=== PATIENT | female | born 1995 | race Caucasian/White ===

== ENCOUNTER 2018-03-17 11:11 | Emergency (ER) | payer SELFPAY ==
[2018-03-17] MEDS ORDERED: Ondansetron 4 MG/2 ML SDV IV ONE (12:17)
[2018-03-17] MEDS ORDERED: Sodium Chloride 0.9% 1,000 ML IV ONE (12:17)
[2018-03-17] MEDS ORDERED: Sodium Chloride 0.9% 10 ML Syringe FLUSH PRN (12:18)
[2018-03-17] MEDS ORDERED: Dicyclomine 20 MG/2 ML SDV IM ONE (12:18)
[2018-03-17 12:58] LABS: ANION GAP 17.9; CHLORIDE,CL 102 mmol/L (101-111); SODIUM,NA 139 mmol/L (135-145)
[2018-03-17] MEDS ORDERED: Iopamidol 612 MG/ML 100 ML Bottle IVPUSH ONE (13:40)
--- NOTE | 2018-03-17 14:46 | CT ---
Clinical history: 22-year-old 245 pound female with lower abdominal pain; elevated white blood cell count (WBC > 16,000). Scan technique: Volume acquisition of data from the abdomen and pelvis obtained without oral contrast but during intravenous ministration 100 cc nonionic Isovue contrast (3 cc/s via injector) while patient was lying supine on the Siemens multi slice scanner [place], [place]. Data archived in the PACS system for storage, reformatting axial/sagittal/coronal planes and study. Interpretation: 1. Normal long appendix in the right lower quadrant, behind the cecum. No calcified appendicoliths or inflammatory "dirty" fat. 2. *Dominant 18 mm diameter cyst left ovary. No "inflammatory "adnexal fat or signs of free fluid in the pelvis. Normal uterus. 3. No abdominal or pelvic mass lesion; no pelvic, mesenteric or retroperitoneal lymphadenopathy; no sign mechanical bowel obstruction, ascites or free intraperitoneal air. No diverticula of the colon. 4. Gallbladder, liver, stomach, spleen, pancreas and adrenal glands unremarkable. 5. Normal reniform size, axis and configuration bilaterally. No sign of renal cortical mass (cystic or solid), nephrolithiasis or obstructive uropathy. No perinephric inflammatory changes. Symmetrically distended normal appearing urinary bladder. 6. Normal caliber abdominal aorta. Lumbar spine unremarkable. Normal heart. Lung bases clear. CONCLUSION: Solitary small left ovarian cyst. Normal appendix. No sign of acute intraperitoneal abnormality.:
--- NOTE | 2018-03-17 15:04 | EDM.PDOC ---
"Scribed by Danita Arrieta 03/17/18 1245 for Rajeev Man MD ED HPI GENERAL MEDICAL PROBLEM - General Chief Complaint: Abdominal Pain Stated Complaint: NOT FEELING WELL Time Seen by Provider: 03/17/18 11:49 Source of Information: Reports: Patient, RN, RN Notes Reviewed History Limitations: Reports: No Limitations - History of Present Illness INITIAL COMMENTS - FREE TEXT/NARRATIVE: Patient presents to ER from home by POV stating that she got really drunk on New Years and had a hangover with nausea and vomiting the following day, but did not have abdominal pain. On 03/13/18 she developed epigastric and left sided abdominal pain with diarrhea and nausea. She has intermittent abdominal cramping which is usually relieved by bowel movements. These symptoms have persisted this past week. She now has been having occasional amounts of hard stool followed by diarrhea. She denies any fevers or chills. Denies bloody stool. She has noted some black stool. Onset: Gradual Duration: Constant Location: Reports: Abdomen Quality: Reports: Ache Severity: Severe Improves with: Reports: Other (when laying on her left side with her knees pulled up. ) Worsens with: Reports: Eating Associated Symptoms: Reports: No Other Symptoms Abdomen Pain Score (Numeric/FACES): 4 - Related Data Allergies Allergy/AdvReac Type Severity Reaction Status Date / Time atomoxetine [From Strattera] Allergy Dizziness Verified 03/17/18 11:31 ceftriaxone [From Rocephin] Allergy Anaphylactic Verified 03/17/18 11:31 Shock strawberry Allergy Anaphylactic Verified 03/17/18 11:31 Shock yagmister Allergy Anaphylactic Uncoded 03/17/18 11:31 Shock Home Meds: Home Meds . 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 Musculoskeletal History: Reports: None Neurological History: Reports: None Psychiatric History: Reports: None Endocrine/Metabolic History: Reports: None Hematologic History: Reports: None Immunologic History: Reports: None Oncologic (Cancer) History: Reports: None Dermatologic History: Reports: None - Infectious Disease History Infectious Disease History: Reports: Other (See Below) Other Infectious Disease History: limes disease - Past Surgical History Head Surgeries/Procedures: Reports: None Social & Family History - Tobacco Use Smoking Status *Q: Never Smoker Second Hand Smoke Exposure: No - Caffeine Use Caffeine Use: Reports: Coffee - Recreational Drug Use Recreational Drug Type: Reports: Marijuana/Hashish Other Recreational Drug Type: pot smoked last night - Living Situation & Occupation Living situation: Reports: with Family ED ROS GENERAL - Review of Systems Review Of Systems: ROS reveals no pertinent complaints other than HPI. ED EXAM, GI/ABD - Physical Exam Exam: See Below Exam Limited By: No Limitations General Appearance: Alert, WD/WN, No Apparent Distress, Obese Eyes: Bilateral: Normal Appearance Nose: Normal Inspection, Normal Mucosa, No Blood Throat/Mouth: Normal Lips, Normal Teeth, Normal Gums, Normal Oropharynx, No Airway Compromise, Other (Dry oral membranes) Head: Atraumatic, Normocephalic Neck: Normal Inspection, Supple, Non-Tender, Full Range of Motion Respiratory/Chest: No Respiratory Distress, Lungs Clear, Normal Breath Sounds, No Accessory Muscle Use, Chest Non-Tender Cardiovascular: Regular Rate, Rhythm, No Edema, No Murmur GI/Abdominal Exam: Normal Bowel Sounds, Soft, No Distention, Tender ( generalized abdominal tenderness, worse at LLQ). No: Guarding, Rigid, Rebound (Female) Exam: Deferred Rectal (Female) Exam: Deferred Back Exam: Normal Inspection, Full Range of Motion. No: CVA Tenderness (L), CVA Tenderness (R) Extremities: Normal Inspection, Normal Range of Motion, Non-Tender, Normal Capillary Refill, No Pedal Edema Neurological: Alert, Oriented, CN II-XII Intact, Normal Cognition, Normal Gait, No Motor/Sensory Deficits Psychiatric: Normal Affect, Normal Mood Skin Exam: Warm, Dry, Intact, Normal Color, No Rash Course - Vital Signs Last Recorded V/S: Last Vital Signs Temp 35.8 C 03/17/18 11:22 Pulse 92 03/17/18 11:22 Resp 16 03/17/18 11:22 BP 139/84 03/17/18 11:39 Pulse Ox 99 03/17/18 11:22 - Orders/Labs/Meds Orders: Active Orders 24 hr Category Date Time Status Peripheral IV Care [RC] . DIRECTED Care 03/17/18 12:18 Active Sodium Chloride 0.9% [Saline Flush] Med 03/17/18 12:18 Active 10 ml FLUSH ASDIRECTED PRN Peripheral IV Insertion Adult [OM.PC] Stat Oth 03/17/18 12:16 Ordered Medication Orders Sodium Chloride (Saline Flush) 10 ml FLUSH ASDIRECTED PRN PRN Reason: Keep Vein Open Last Admin: 03/17/18 12:53 Dose: 10 ml Labs: Laboratory Tests 03/17/18 03/17/18 03/17/18 Range/Units 12:25 12:25 12:25 WBC 16.1 H (5.0-10.0) 10^3/uL RBC 5.07 (4.2-5.4) 10^6/uL Hgb 15.8 (12.0-16.0) g/dL Hct 45.6 (37.0-47.0) % MCV 89.9 (80-100) fL MCH 31.2 (27.0-34.0) pg MCHC 34.6 (33.0-35.0) g/dL Plt Count 368 (150-450) 10^3/uL Neut % (Auto) 80.6 H (42.2-75.2) % Lymph % (Auto) 13.4 L (20.5-50.1) % [place] % (Auto) 5.5 (2-8) % Eos % (Auto) 0.3 L (1.0-3.0) % Baso % (Auto) 0.2 (0.0-1.0) % Sodium 139 (135-145) mmol/L Potassium 3.9 (3.6-5.0) mmol/L Chloride 102 (101-111) mmol/L Carbon Dioxide 23.0 (21.0-31.0) mmol/L Anion Gap 17.9 BUN 13 (7-18) mg/dL Creatinine 0.8 (0.6-1.3) mg/dL Est Cr Clr Drug Dosing 96.86 mL/min Estimated GFR (MDRD) > 60 BUN/Creatinine Ratio 16.25 Glucose 85 (74-105) mg/dL Lactic Acid 0.7 (0.5-2.2) mmol/L Calcium 9.2 (8.4-10.2) mg/dl Total Bilirubin 0.7 (0.2-1.0) mg/dL AST 20 (10-42) IU/L ALT 27 (10-60) IU/L Alkaline Phosphatase 69 (42-121) IU/L C-Reactive Protein (0.0-1.3) mg/dL Total Protein 8.5 H (6.7-8.2) g/dl Albumin 4.7 (3.2-5.5) g/dl Globulin 3.8 Albumin/Globulin Ratio 1.24 Amylase 39 (28-100) U/L Lipase 25 (22-51) U/L Urine Color (YELLOW) Urine Appearance (CLEAR) Urine pH (5.0-9.0) Ur Specific [place] (1.005-1.030) Urine Protein (NEGATIVE) Urine Glucose (UA) (NEGATIVE) Urine Ketones (NEGATIVE) Urine Occult Blood (NEGATIVE) Urine Nitrite (NEGATIVE) Urine Bilirubin (NEGATIVE) Urine Urobilinogen (0.2-1.0) mg/dL Ur Leukocyte Esterase (NEGATIVE) Urine RBC /HPF Urine WBC (0-5/HPF) /HPF Ur Epithelial Cells /HPF Urine Bacteria (0-FEW/HPF) /HPF Urine Mucus /LPF Urine Yeast (0/HPF) /HPF Urine HCG, Qual 03/17/18 03/17/18 03/17/18 Range/Units 12:25 12:30 12:30 WBC (5.0-10.0) 10^3/uL RBC (4.2-5.4) 10^6/uL Hgb (12.0-16.0) g/dL Hct (37.0-47.0) % MCV (80-100) fL MCH (27.0-34.0) pg MCHC (33.0-35.0) g/dL Plt Count (150-450) 10^3/uL Neut % (Auto) (42.2-75.2) % Lymph % (Auto) (20.5-50.1) % [place] % (Auto) (2-8) % Eos % (Auto) (1.0-3.0) % Baso % (Auto) (0.0-1.0) % Sodium (135-145) mmol/L Potassium (3.6-5.0) mmol/L Chloride (101-111) mmol/L Carbon Dioxide (21.0-31.0) mmol/L Anion Gap BUN (7-18) mg/dL Creatinine (0.6-1.3) mg/dL Est Cr Clr Drug Dosing mL/min Estimated GFR (MDRD) BUN/Creatinine Ratio Glucose (74-105) mg/dL Lactic Acid (0.5-2.2) mmol/L Calcium (8.4-10.2) mg/dl Total Bilirubin (0.2-1.0) mg/dL AST (10-42) IU/L ALT (10-60) IU/L Alkaline Phosphatase (42-121) IU/L C-Reactive Protein < 0.5 (0.0-1.3) mg/dL Total Protein (6.7-8.2) g/dl Albumin (3.2-5.5) g/dl Globulin Albumin/Globulin Ratio Amylase (28-100) U/L Lipase (22-51) U/L Urine Color Yellow (YELLOW) Urine Appearance Clear (CLEAR) Urine pH 6.5 (5.0-9.0) Ur Specific [place] 1.025 (1.005-1.030) Urine Protein Negative (NEGATIVE) Urine Glucose (UA) Negative (NEGATIVE) Urine Ketones Negative (NEGATIVE) Urine Occult Blood Small H (NEGATIVE) Urine Nitrite Negative (NEGATIVE) Urine Bilirubin Negative (NEGATIVE) Urine Urobilinogen 0.2 (0.2-1.0) mg/dL Ur Leukocyte Esterase Negative (NEGATIVE) Urine RBC 5-10 H /HPF Urine WBC 0-5 (0-5/HPF) /HPF Ur Epithelial Cells Few /HPF Urine Bacteria Few (0-FEW/HPF) /HPF Urine Mucus Moderate H /LPF Urine Yeast Few H (0/HPF) /HPF Urine HCG, Qual Negative Meds: Medications Generic Name Dose Route Start Last Admin Trade Name Freq PRN Reason Stop Dose Admin Sodium Chloride 10 ml 03/17/18 12:18 03/17/18 12:53 Saline Flush FLUSH 10 ml ASDIRECTED PRN Administration Keep Vein Open Discontinued Medications Generic Name Dose Route Start Last Admin Trade Name Freq PRN Reason Stop Dose Admin Dicyclomine HCl 20 mg 03/17/18 12:18 03/17/18 12:52 Bentyl IM 03/17/18 12:19 20 mg ONETIME ONE Administration Sodium Chloride 1,000 mls @ 999 mls/hr 03/17/18 12:17 03/17/18 12:54 Normal Saline IV 03/17/18 13:17 999 mls/hr .BOLUS ONE Administration Iopamidol 100 ml 03/17/18 13:40 03/17/18 14:22 Isovue-300 (61%) IVPUSH 03/17/18 13:41 100 ml ONETIME ONE Administration Ondansetron HCl 4 mg 03/17/18 12:17 03/17/18 12:53 Zofran IV 03/17/18 12:18 4 mg ONETIME ONE Administration - Radiology Interpretation Free Text/Narrative:: [facility] [place] [facility] Final Radiology Report Call: [phone] assistance Online chat: [email or web address] Name: ALLEN MCFARLANE Age: 22Years F Date: 03/17/2018 SSN: -- : [id number] Study: XR ABDOMEN 3 OR MORE VIEWS Requesting Physician: RAJEEV MAN Images: 4 Addl Studies: Provided Clinical History: alternating diarrhea/constipation Contrast: Contrast Medium: Contrast Amount: Contrast Method: Page 1 of 2 EXAM: XR Abdomen, 3 or More Views EXAM DATE/TIME: 03/17/2018 1:03 PM CLINICAL HISTORY: 22 years old, female; Pain and signs and symptoms; Constipation; Abdominal pain ; Localized; Left; Additional info: Alternating diarrhea/constipation TECHNIQUE: Frontal view of the abdomen/pelvis with upright view of the abdomen and one or more additional views. (4 images total) COMPARISON: CR ABD OR KUB 09/15/2008 4:07 PM FINDINGS: Gastrointestinal tract: There is mild gaseous distention of a loop of small bowel over the upper abdomen. No significant air-fluid levels. Air and stool are present within large bowel. Intraperitoneal space: No free air is evident. Bones/joints: Unremarkable for age. IMPRESSION: Mild gaseous distention of an upper abdominal small bowel loop, could reflect localized ileus or some degree of obstruction. Thank you for allowing us to participate in the care of your patient. Dictated and Authenticated by: Manuel Orantes MD ALLEN MCFARLANE | Final Radiology Report CONFIDENTIALITY STATEMENT This report is intended only for use by the referring physician, and only in accordance with law. If you received this in error, call [phone]. Page 2 of 2 03/17/2018 1:46 PM Central Time ([place] & [place]) ABDOMEN AND PELVIS CT: Solitary small left ovarian cyst. Normal appendix. No sign of acute intraperitoneal abnormality. See rad report. Departure - Departure Time of Disposition: 15:02 Disposition: Home, Self-Care 01 Condition: Fair Clinical Impression: Colitis - Discharge Information *PRESCRIPTION DRUG MONITORING PROGRAM REVIEWED*: Not Applicable *COPY OF PRESCRIPTION DRUG MONITORING REPORT IN PATIENT FAWAD: Not Applicable Instructions: Colitis Forms: ED Department Discharge Additional Instructions: Rx: Dicyclomine 20mg Rx: Zofran 4mg Soft bland diet, and drink plenty of water. Follow up in clinic this week for recheck and possible referral for colonoscopy if needed. - My Orders Last 24 Hours: My Active Orders 03/17/18 12:16 Peripheral IV Insertion Adult [OM.PC] Stat 03/17/18 12:18 Peripheral IV Care [RC] . DIRECTED Sodium Chloride 0.9% [Saline Flush] 10 ml FLUSH ASDIRECTED PRN - Assessment/Plan Last 24 Hours: My Active Orders 03/17/18 12:16 Peripheral IV Insertion Adult [OM.PC] Stat 03/17/18 12:18 Peripheral IV Care [RC] . DIRECTED Sodium Chloride 0.9% [Saline Flush] 10 ml FLUSH ASDIRECTED PRN I have read and agree with the documentation that has been completed regarding this visit. By signing this record, I attest that the documentation was completed in my physical presence and is an accurate record of the encounter."
== END 2018-03-17 15:20 | disposition home or self-care (01) ==
LOC: DL.ED 11:11
DX: K52.9 Noninfective gastroenteritis and colitis, unspecified (principal); N83.202 Unspecified ovarian cyst, left side; Z88.8 Allergy status to other drugs, medicaments and biological substances; Z91.018 Allergy to other foods
CPT/HCPCS: 36415; 74021; 74177; 80053; 81001; 81025; 82150; 83605; 83690; 85025; 86140; 96361; 96372; 96374; 99284; J0500; J2405; J7030; Q9967

== ENCOUNTER 2020-09-29 15:31 | Inpatient (IN) | payer MEDICAID ==
[2020-09-29 17:39] LABS: ANION GAP 15.7 mEq/L (7-13); CHLORIDE,CL 104 mmol/L (98-107); SODIUM,NA 139 mmol/L (136-145)
[2020-09-29] MEDS ORDERED: Fluconazole 100 MG Tab PO ONE (18:41)
[2020-09-29] MEDS ORDERED: Sodium Chloride 0.9% 10 ML Syringe FLUSH PRN (18:50)
[2020-09-29] MEDS ORDERED: Ondansetron 4 MG/2 ML SDV IVPUSH PRN ×2 (18:50)
[2020-09-29] MEDS ORDERED: Naloxone 2 MG/2 ML Syringe IVPUSH PRN (18:50)
[2020-09-29] MEDS ORDERED: Famotidine 20 MG/2 ML SDV IVPUSH PRN (18:50)
[2020-09-29] MEDS ORDERED: Methylergonovine 0.2 MG/1 ML Amp IM PRN (18:50)
[2020-09-29] MEDS ORDERED: Promethazine 25 MG/ML SDV IM PRN (18:50)
[2020-09-29] MEDS ORDERED: Lidocaine 1% 30 ML SDV INJECT PRN (18:50)
[2020-09-29] MEDS ORDERED: Misoprostol 400 MCG (4 X 100 MCG TAB) RECTAL PRN (18:50)
[2020-09-29] MEDS ORDERED: Acetaminophen 325 MG Tab PO PRN ×2 (18:50)
[2020-09-29] MEDS ORDERED: Tranexamic Acid 1,000 MG in Sodium Chloride 0.9% 100 ML IV PRN (18:50)
[2020-09-29] MEDS ORDERED: Carboprost Tromethamine 250 MCG/1 ML Amp IM PRN (18:50)
[2020-09-29] MEDS ORDERED: Lactated Ringers 1,000 ML IV ONE (18:50)
[2020-09-29] MEDS ORDERED: Lactated Ringers 500 ML IV SCH (19:00)
[2020-09-29] MEDS ORDERED: Oxytocin/Normal Saline 30 UNIT/500 ML BAG IV SCH ×2 (19:00)
[2020-09-29] MEDS: Lactated Ringers 1,000 ML IV SCH (19:40)
[2020-09-29] MEDS: Amoxicillin 500 MG Cap PO SCH (19:54)
[2020-09-29 19:58] LABS: AMPHETAMINES,URINE NEGATIVE (NEGATIVE); BARBITURATES,URINE NEGATIVE (NEGATIVE); BENZODIAZEPINE,URINE NEGATIVE (NEGATIVE); MDMA (ECSTASY), URINE NEGATIVE (NEGATIVE); METHADONE,URINE NEGATIVE (NEGATIVE); METHAMPHETAMINES,URINE NEGATIVE (NEGATIVE); OPIATES,URINE NEGATIVE (NEGATIVE); OXYCODONE,URINE NEGATIVE (NEGATIVE); PHENCYCLIDINE,URINE NEGATIVE (NEGATIVE); TCA,URINE NEGATIVE (NEGATIVE)
[2020-09-29] MEDS ORDERED: Labetalol 20 MG/4 ML Syringe IVPUSH ONE ×2 (21:15→23:47)
--- NOTE | 2020-09-30 00:07 | OBOUT ---
DATE: 09/29/2020 INDICATION FOR NST: Decreased movement at term. REPORT: Baseline heart rate 120 beats per minute. Moderate [id number] variability. Accelerations noted. A couple of random decelerations to the 100s and 90s noted, but overall in a couple of hours of monitoring, she was a category 1. [place] initially showing some irregular and difficult to trace contractile activity. Currently, she has uterine irritability with mild contractions every minute. INTERPRETATION: Category 1, reassuring and reactive NST. [facility] /[id number]
[2020-09-30] MEDS: fentaNYL 100 MCG/2 ML SDV IVPUSH PRN ×2 (00:40→02:03)
[2020-09-30] MEDS ORDERED: Labetalol 20 MG/4 ML Syringe IVPUSH ONE (01:10)
[2020-09-30] MEDS: Lactated Ringers 1,000 ML IV SCH ×4 (01:11→17:03)
[2020-09-30] MEDS: Amoxicillin 500 MG Cap PO SCH ×4 (01:22→18:00)
[2020-09-30] MEDS: Labetalol 100 MG Tab PO SCH ×3 (01:22→21:11)
[2020-09-30] MEDS ORDERED: EPINEPHrine 1 MG/ML SDV ONE (03:03)
[2020-09-30] MEDS ORDERED: fentaNYL 100 MCG/2 ML SDV ONE (03:03)
[2020-09-30] MEDS ORDERED: Sodium Bicarbonate 4.2% 2.5 MEQ/5 ML SDV ONE (03:04)
--- NOTE | 2020-09-30 03:30 | PCM.SN.2 ---
- Free Text/Narrative Note: Intrathecal. Sitting position, sterile prep and drape. 1% lidocaine w bicarb for skinwheal to L2 L3 [id number] Ga Pencan x 2, no CSF, lidocaine to L3 L4 interspace, introducer and 24 Ga Pencan x 2, Pos CSF, neg heme, neg parasthesia. Introducer, 24 ga pencan x 1. I:1000 pf epi wash, 20 mcg pf sufenta, 30 mcg pf fentanyl, 0.4 ml pf NS and 6 mg of 0.75% pf Marcaine injected after CSF aspiration. Pt to L lateral position. Procedure time 0310 to 0340
[2020-09-30] MEDS: ePHEDrine 50 MG/ML SDV IVPUSH PRN ×4 (03:43→04:15)
[2020-09-30] MEDS ORDERED: Oxytocin/Normal Saline 60 UNIT/1,000 ML BAG ONE (04:56)
[2020-09-30] MEDS ORDERED: Citric Acid/Sodium Citrate Solution 30 ML Cup PO ONE (04:59)
[2020-09-30] MEDS ORDERED: Gentamicin 370 MG in Sodium Chloride 0.9% 100 ML IV ONE (05:15)
--- NOTE | 2020-09-30 05:25 | PN ---
DATE: 09/30/2020 SUBJECTIVE: The patient was complaining of constant uncontrollable pain in the pelvic area, but not really complaining as much of the contraction pain and just overall having difficulty tolerating things, riding in the bed quite a bit. The nurses could get a very good tracing. She had undergone artificial rupture of membranes with clear fluid just before midnight. Blood pressure at that time was 159/94 and pulse of 59. heart tones at 120 beats per minute and Catherine really not tracing the contractions well. We tried to get the patient to settle and she really was not able to relax. At around 2:45 in the morning, I was assessing the patient, she was 3-4 cm dilated and still not able to trace contractions well. heart tones in the 120s at baseline with some increased variability. No decelerations. Acceleration still noted. Attempted to place intrauterine pressure catheter, but there was too much resistance, so this attempt was terminated and we decided that she could go ahead and have an intrathecal which was performed at about 3:10 a.m. After that, heart tones were in the 90s for quite some time and the blood pressure initially was 135/73, and baby continued to not show much improvement, but cervix was 6 cm dilated. Pitocin was turned off, oxygen applied, and we were having recovery into the 120s but then decelerating down again into the 60s. Blood pressures 95/71, 93/49, 100/71, 100/55. Ultimately over this time span, we gave a total of 40 of ephedrine as 5, 5, 10 and 20 per dose. Bolus of IV fluids was not really doing anything to help and at this time, we were seeing recurrent decelerations. Contractions not tracing well until we got the patient finally turned where we could see the contractions and they are now revealing that we were having recurrent late decelerations, usually down into the 70s and 80s, still recovering up into the 120s even with some rebound up to 140s. Contractions approximately every 2 minutes. Intensity of the deceleration is lessening over time, however. Cervix is about 9 cm dilated. The baby's skull has undergone some significant molding and is very low in the pelvis. ASSESSMENT: 1. intolerance of labor secondary to decreased blood pressures after intrathecal anesthesia and possible other causes of uteroplacental insufficiency. 2. 40 and 1/7 weeks intrauterine . 3. Other diagnoses as per her H and P. PLAN: At this time, the operating room has been notified to set up for surgery. Dr. Gutierrez has been called to come in and consult as well. Anticipate that we will be going for a primary low transverse section and verbal consent obtained. We will get written consent and those forms will be signed in the chart. When Dr. Gutierrez arrives, I would like him to review situation with me as well as consider seeing the patient and if she is complete, whether or not we can consider vacuum delivery which may be more readily achieved than going for . [facility] /[id number]
[2020-09-30] MEDS ORDERED: Ondansetron 4 MG/2 ML SDV IVPUSH PRN (06:51)
[2020-09-30] MEDS ORDERED: diphenhydrAMINE 50 MG/ML SDV IVPUSH PRN (06:51)
[2020-09-30] MEDS: Prenatal Multivitamin with Calcium/Folic Acid/Iron Tab PO SCH (08:56)
[2020-09-30] MEDS: Simethicone 80 MG Tab.Chew PO SCH ×4 (08:56→21:09)
[2020-09-30] MEDS: Ferrous Sulfate 325 MG Tab PO SCH (08:56)
--- NOTE | 2020-09-30 09:30 | OR ---
DATE: 09/30/2020 PROCEDURE PERFORMED: Primary low transverse section. PREPROCEDURE DIAGNOSES: 1. 40-1/7 weeks intrauterine . 2. intolerance of labor. 3. 2, para 0-0-1-0. 4. Premature prolonged rupture of membranes. 5. Group B strep positive, treated with vancomycin in labor. Blood type B positive. Rubella immune. 6. History of tobacco use in the first 2 trimesters. 7. Marijuana use throughout . 8. History of 2nd trimester bleeding. 9. Gestational hypertension. 10.Yeast infection. 11.Urinary tract infection. POSTPROCEDURE DIAGNOSES: 1. 40-1/7 weeks intrauterine . 2. intolerance of labor. 3. 2, now para 1-0-1-1, status post primary low transverse section without complications. 4. Premature prolonged rupture of membranes. 5. Group B strep positive, treated with vancomycin in labor. Blood type B positive. Rubella immune. 6. History of tobacco use in the first 2 trimesters. 7. Marijuana use throughout . 8. History of 2nd trimester bleeding. 9. Gestational hypertension. 10.Yeast infection. 11.Urinary tract infection. ARCHITECT MARINE: Dr. Aramis Gutierrez. ANESTHESIA: Spinal. CONSENT: Discussed with the patient, her boyfriend, and her mother the indications, risks, benefits, and alternatives of section for safe delivery of the infant. In this case, we have intolerance of labor with recurrent late decelerations associated with hypotension after her intrathecal. However, the patient also has had significantly elevated blood pressure, so there is concern for placental abruption and continued efforts at vaginal delivery deemed not appropriate. She understands risk of infection and plan for preoperative antibiotics, risk of bleeding to the point of requiring a blood transfusion, risk of injury to any internal organs, adjacent structures including but not limited to large blood vessels and nerves, internal organs and adjacent structures including but not limited to, uterus, bladder, fallopian tubes, ovaries, intestines, even potential injury to the baby, potential for complications for mother and/or baby who would require transfer to a higher level of care. Her questions were answered and appropriate consent form signed and can be found in the chart. BRIEF HISTORY: A 25-year-old female with the above-listed diagnoses presented to the clinic reporting a small amount of leakage of fluid and concern for decreased movement. NST was category 1. AmniSure test was positive. She was having some elevated blood pressures that were labile on admission, but during the time that she has been in, proved to be sustained and consistent with gestational hypertension. We did [facility] labs that she ruled out for preeclampsia with a protein-creatinine ratio of 213. Other labs unremarkable. Her urine drug screen was positive for marijuana. Urine showed small leukocyte esterase and 20 to 30 wbcs as well as yeast present. Admission hemoglobin 13.2 and platelets 255. She was allowed to labor on her own while the vancomycin was running. After 4 hours, she was rechecked and there was a forebag present that was ruptured and clear amniotic fluid returned. She went on to have significant pain and we could not trace the contractions well. During this time, the monitoring strip was category 1, no decelerations. So, we were considering using an IUPC to monitor the contractions better so that we could adjust the Pitocin accordingly as she was making minimal cervical change, and we were unable to pass a IUPC because there was too much resistance. Shortly after that she was 5 cm dilated and intrathecal was provided. This unfortunately dropped her blood pressures significantly despite 40 mcg of epinephrine. Baby still had recurrent late decelerations and she was 9 cm dilated and the baby wedged down low in the pelvis. Unfortunately, continued efforts for vaginal delivery were deemed inappropriate. Pitocin was turned off and preparations were made to proceed with surgery. During this time, baby's heart rate returned back into the 120s and was very reassuring and category 1, and the decelerations just about resolved. SURGERY DETAILS: The patient was brought to the operating room. A Burden indwelling catheter had already been placed on the Labor and Delivery Unit. She was laid in the dorsal supine position with leftward tilt and prepped with ChloraPrep and sterile drapes applied in the usual fashion. Skin was incised at 5:42 a.m. and carried down through the subcutaneous tissues with cautery and fascia incised and extended bilaterally using cautery and traction. Superior fascial edge was retracted with Dora's and rectus muscles dissected off with blunt traction. Inferior fascial edge treated in similar fashion. Peritoneal cavity entered by blunt finger dissection. Hong retractor was then placed and appropriate decision for hysterotomy incision agreed upon by myself and Dr. Gutierrez. Uterine incision made with scalpel and extended further using Coppola method. It was clear that we needed some additional room to get the baby's head out, so the hysterotomy site was extended at the lateral edges curving upward with bandage scissors. Once we had full visualization of the baby, we could tell that the lips were presenting through the hysterotomy site and he was very wedged in the pelvis. I was unable to pass my hand around his head in order to bring his head up without possibly poking his eyes. Dr. Gutierrez made additional attempts to get his head out and we had a nurse underneath the drape pushing up on the baby's head. Eventually, between myself and Dr. Gutierrez he was able to bring the baby's head up through the hysterotomy site and then easily deliver the remainder of the baby thereafter. Baby was stimulated. Nose and mouth bulb suctioned and three-vessel cord doubly clamped and cut, and baby taken to the warmer for further evaluation and resuscitation. Cord blood sample was obtained and placenta delivered by gentle cord traction and concomitant uterine massage intact. This was followed by some dark red blood clot and dark red bleeding consistent with old abruption. The uterus was cleared with a dry lap sponge x2 and cleared of all clots and debris. Hysterotomy site was then closed with a running locked suture of 0 looped PDS in the usual fashion. There was noted some irregularity on the right-hand side, but it reapproximated well. A 2nd imbricating layer was placed and we achieved good hemostasis and this was confirmed and then the Hong retractor was removed. Pericolic gutters cleared of all clots and debris. Hysterotomy site reinspected and remained hemostatic. This was then irrigated and the peritoneal layers were brought back together with a remnant of the 0 Vicryl suture and then that layer irrigated and fascial layer closed with a running suture of 0 looped PDS in the usual fashion. Skin layer was then closed with a subcuticular stitch of 4-0 Monocryl. The patient tolerated procedure well and baby was delivered at 5:49 a.m. and surgery ended at 6:30 a.m. COMPLICATIONS: None. URINE OUTPUT: 80 mL. FLUIDS: 1000 mL of crystalloids, 250 of Pitocin. ESTIMATED BLOOD LOSS: 450 mL. FINDINGS: Viable male , score 6 and 8, weight 2915 g, length 20 inches. He was in the OP position wedged in the pelvis. He has significant caput and molding that is also asynclitic to the left side of his head. So, OP and asynclitic presentation would have also made vaginal delivery much more difficult. At delivery of the placenta there was also noted dark blood consistent with placental abruption. DISPOSITION: Baby taken to the nursery. Mother to go to the PACU. MODL /[id number]
--- NOTE | 2020-09-30 10:14 | HP ---
CHIEF COMPLAINT: Lower abdominal discomfort and decreased movement. HISTORY OF PRESENT ILLNESS: 25-year-old 2, para 0-0-1-0, currently at 40-0/7 weeks' gestation based on last menstrual period, presents to Labor and Delivery reporting that she actually started having a little bit of leakage of fluid this morning around 7 o'clock. Uncertain what it really was, but did not think much of it, and has not had very much leakage through the rest of the day. No regular contractions, but does have some pain down low over her pubic bone region that just seems to be getting worse throughout the day. movement has been diminished from what it has been previously. She also reports having some mild right upper quadrant pain. No nausea or vomiting. No chest pain or shortness of breath. No headaches or blurry vision. No change in her edema, and denies other acute concerns. Denies symptoms of urinary tract infection or vaginitis. OBSTETRICAL HISTORY: Dating by 17 week 1 day ultrasound, anterior placenta. No anomalies seen. Blood type A positive, rubella immune. Syphilis nonreactive. Hepatitis B nonreactive. HIV nonreactive. Gonorrhea negative. Chlamydia negative. TSH 1.01. Hepatitis C negative. Initial wet prep positive for clue cells and that was treated. Glucose tolerance test 799. Group B strep positive. PAST MEDICAL HISTORY: 1. Daily cannabis use to help with her colitis pain because antinausea medications make her constipated. 2. Colitis. 3. History of miscarriage x1. 4. History of Lyme disease as a child. 5. Migraine headaches. Questionable if there is an associated aura. Has had a negative MRI. 6. Premature at 36 weeks' gestation. 7. Smoking in the first trimester of . 8. History of multiple wrist fractures, 3 on the left, 2 on the right. PAST SURGICAL HISTORY: None. FAMILY HISTORY: Mother alive with gastroparesis, arachnoid cyst, Sjogren syndrome, fibromyalgia, and has had a stent placed for coronary artery disease. Father is alive and also has an arachnoid cyst and rheumatoid arthritis. Brother, Rod, has depression. Half brother is unknown to her. Maternal grandmother and had ovarian cancer. Maternal grandfather of liver cancer, heart failure, and alcohol abuse. Paternal grandmother alive with COPD and heart disease. Paternal grandfather and he was not known to her. There is no family history of any defects, clotting disorders, bleeding problems, multiple births, anesthesia problems, or cystic fibrosis. SOCIAL HISTORY: The patient was a regular half pack per day smoker until about 27+ weeks' gestation. Denies any alcohol use during the . Admits to frequent marijuana use, but reports she is down to less than 2 g at this time. She is working at the [employer] in [employer]. Father of the baby is [place]. He works as a labor for [employer] in [employer]. This is his second child. Her first. His grandmother from Alzheimer disease. His father is healthy. His mother has numerous health problems, but he is not exactly sure what they are. ALLERGIES: Ceftriaxone causes hives and her throat to swell. Strawberries cause an anaphylactic reaction. Atomoxetine causes dizziness, lightheadedness, and nausea. Dicyclomine causes uncontrollable crying. MEDICATIONS: vitamin 1 daily, Tylenol 500 mg to 1000 mg every 6 hours as needed, simethicone 80 mg every 6 hours as needed, Jenise daily as needed for allergies, epinephrine 0.3 mg if needed for anaphylaxis. REVIEW OF SYSTEMS: As per the history of present illness. No other pertinent positives or negatives outlined at this time. OBJECTIVE: Vital Signs: Initial blood pressure 143/97, recheck 149/101, pulse of 58, respiratory rate of 18, and she is afebrile. Later, her blood pressures did improve down to 138/81 and then rebounded up to 152/88. Head: Normocephalic and atraumatic. Neck: Supple without adenopathy. Heart: Regular without obvious murmur. Lungs: Clear to auscultation bilaterally. Abdomen: Soft and nontender. Fundus is consistent with dates. Baby is vertex and this was confirmed with bedside ultrasound. monitoring strip baseline. heart rate of 120 beats per minute. Moderate [id number] variability. Accelerations noted. There were some random decelerations down into the 100s or 90s, but baby is currently category 1. [place] initially not tracing contractile activity very well, but currently showing contractions about every 1 minute, a lot of uterine irritability. Cervix is 1+ cm, 90% effaced. Soft palpation of either the buttocks is possible. Still intact bag of water present. Extremities: No edema, erythema, or tenderness. Neurological Findings: Nonfocal. ASSESSMENT: 1. 40-0/7 weeks' intrauterine based on 17-week ultrasound. 2. 2, para 0-0-1-0. 3. Premature rupture of membranes, approximately 12 hours at this time. 4. Group B streptococcus positive. 5. Blood type A positive and rubella immune. 6. Prior tobacco smoker until 27 weeks. 7. Regular marijuana use. 8. Second trimester bleeding. 9. History of spontaneous x1. 10.Attention deficit hyperactivity disorder. 11.Currently, having labile blood pressures and ruling out for preeclampsia. 12.Yeast infection. 13.Urinary tract infection. LABORATORY DATA: Hemoglobin 13.2, platelets 255. Urine protein creatinine ratio of 213.6. AmniSure was positive. Remaining PIH labs are also negative. Urinalysis with yeast present. A small amount of leukocyte esterase, 20-30 wbc's, and overall quite concentrated with some epithelial cells noted. PLAN: Due to the positive AmniSure, we will admit the patient to the hospital and get her started with IV Pitocin and recheck her for cervical change. Once she has had adequate dosing with her vancomycin, we will go back and rupture any remaining forebag that she may have present and be expecting vaginal delivery. We will monitor for any signs or symptoms of chorioamnionitis. The vancomycin will also cover her urinary tract infection and we can find an appropriate antibiotic to discharge her home on. The yeast infection will be treated with Diflucan. The patient's questions have been answered. [facility] /[id number]
[2020-09-30] MEDS: Ketorolac 30 MG/ML SDV IVPUSH SCH ×2 (11:54→17:59)
[2020-09-30] MEDS: Docusate Sodium 100 MG Cap PO PRN (21:10)
[2020-10-01] MEDS: Ketorolac 30 MG/ML SDV IVPUSH SCH (00:23)
[2020-10-01] MEDS: Lactated Ringers 1,000 ML IV SCH (00:34)
[2020-10-01] MEDS: Amoxicillin 500 MG Cap PO SCH ×3 (02:41→18:11)
[2020-10-01] MEDS: Ferrous Sulfate 325 MG Tab PO SCH (08:28)
[2020-10-01] MEDS: Prenatal Multivitamin with Calcium/Folic Acid/Iron Tab PO SCH (08:28)
[2020-10-01] MEDS: Simethicone 80 MG Tab.Chew PO SCH ×4 (08:29→22:41)
[2020-10-01] MEDS: Labetalol 100 MG Tab PO SCH ×2 (08:48→22:37)
[2020-10-01] MEDS: Amoxicillin/Clavulanate K 875-125 MG Tab PO SCH ×2 (09:05→22:41)
[2020-10-01] MEDS: Acetaminophen/oxyCODONE 325-5 MG Tab PO PRN ×6 (09:06→19:39)
[2020-10-01] MEDS: Ibuprofen 800 MG Tab PO PRN ×2 (09:06→19:40)
[2020-10-01] MEDS ORDERED: Oxytocin/Normal Saline 30 UNIT/500 ML BAG IV ONE (10:01)
--- NOTE | 2020-10-01 10:09 | PN ---
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 She reports that she is doing well, tolerating regular diet. She had her Burden catheter out, been up to walk once or twice and tolerating that well. No chest pain or shortness of breath. No oozing, drainage, or discharge has been noted from the site. She does report some expected pain with coughing and laughing. Denies any new swelling in the lower extremities and no symptoms of her urinary tract infection. Also denying any symptoms of preeclampsia. No headaches, blurry vision. No right upper quadrant pain. No change in her swelling. Blood pressures overnight have been normal, and nurses have held her labetalol because of that. OBJECTIVE: Vital Signs: Temperature is 98.5, pulse 85, blood pressure 132/70, respiratory rate of 20, O2 saturations 99% on room air. Heart: Regular without murmur. Lungs: Clear to auscultation bilaterally. Abdomen: Soft without unusual tenderness. Dressing removed and incision site is clean, dry, and intact. Bowel sounds are hypoactive and present. Extremities: No edema, erythema, or tenderness noted. LAB: Shows hemoglobin 11.3, platelets 224. ASSESSMENT: 1. Postoperative day 1, primary low transverse section. 2. 2, para 1-0-1-1. 3. Gestational hypertension, currently not requiring medications. 4. Prolonged premature rupture of membranes. 5. Urinary tract infection noted on admission. 6. Yeast infection noted on admission and treated. 7. Prior smoker. 8. Almost daily THC user. 9. History of 2nd trimester bleeding. 10.Attention deficit hyperactivity disorder. 11. mother. PLAN: Continue normal postoperative cares and support. Anticipate discharge home on day #3. The patient had received vancomycin in labor for her group B strep positive and then she had gentamicin with her surgery. Today, I will be starting her on some Augmentin for her bladder infection. She reports that she has tolerated amoxicillin well in the past and anticipate will only be needing to treat this for a few days. Her questions have been answered. Dr. Quinn will be taking over in my absence. MODL /[id number]
[2020-10-01] MEDS ORDERED: Lactated Ringers 1,000 ML IV ONE (13:05)
[2020-10-01] MEDS ORDERED: Dexamethasone 4 MG/ML SDV IV ONE (13:05)
[2020-10-01] MEDS ORDERED: EPINEPHrine 1 MG/ML SDV ONE (13:05)
[2020-10-01] MEDS ORDERED: Ondansetron 4 MG/2 ML SDV IV ONE (13:05)
[2020-10-01] MEDS ORDERED: Ketorolac 30 MG/ML SDV IVPUSH ONE (13:05)
[2020-10-01] MEDS ORDERED: Morphine PF 10 MG/10 ML SDV ONE (13:05)
[2020-10-01] MEDS ORDERED: fentaNYL 100 MCG/2 ML SDV ITHECAL ONE (13:05)
[2020-10-01] MEDS ORDERED: Sodium Bicarbonate 4.2% 2.5 MEQ/5 ML SDV ONE ×2 (13:05)
[2020-10-01] MEDS: Docusate Sodium 100 MG Cap PO PRN (22:41)
[2020-10-02] MEDS: Amoxicillin 500 MG Cap PO SCH ×3 (03:40→18:36)
[2020-10-02] MEDS: Ibuprofen 800 MG Tab PO PRN ×3 (03:40→21:52)
[2020-10-02] MEDS: Acetaminophen/oxyCODONE 325-5 MG Tab PO PRN ×3 (03:42→17:26)
[2020-10-02] MEDS: Simethicone 80 MG Tab.Chew PO SCH ×4 (09:07→21:52)
[2020-10-02] MEDS: Labetalol 100 MG Tab PO SCH ×2 (09:08→21:51)
[2020-10-02] MEDS: Prenatal Multivitamin with Calcium/Folic Acid/Iron Tab PO SCH (09:08)
[2020-10-02] MEDS: Amoxicillin/Clavulanate K 875-125 MG Tab PO SCH ×2 (09:08→21:53)
[2020-10-02] MEDS: Ferrous Sulfate 325 MG Tab PO SCH (09:08)
[2020-10-02] MEDS: Docusate Sodium 100 MG Cap PO PRN (10:54)
[2020-10-02] MEDS ORDERED: SUMAtriptan 6 MG/0.5 ML SDV SUBCUT ONE (11:34)
--- NOTE | 2020-10-02 11:35 | PCM.PNPP ---
- General Info Date of Service: 10/02/20 Subjective Update: Patient is overall doing well. Burden has been removed and she is urinating without difficulty. Tolerating a general diet. Ambulating without issue. is going well. Denies fever, chills, dizziness or lightheadedness. Patient does complain of a migraine. Reports she has had these in the past and this is similar in nature. Took sumitriptan for headaches prior to . Functional Status: Reports: Pain Controlled, Tolerating Diet, Ambulating, Urinating - Review of Systems General: Reports: No Symptoms HEENT: Reports: Headaches Pulmonary: Reports: No Symptoms Cardiovascular: Reports: No Symptoms Gastrointestinal: Reports: No Symptoms Genitourinary: Reports: No Symptoms Musculoskeletal: Reports: No Symptoms Skin: Reports: No Symptoms Neurological: Reports: No Symptoms - General Info Date of Service: 10/02/20 - Patient Data Vital Signs - Most Recent: Last Vital Signs Temp 36.8 C 10/02/20 08:00 Pulse 80 10/02/20 09:08 Resp 18 10/02/20 08:00 BP 145/85 H 10/02/20 09:08 Pulse Ox 99 10/02/20 08:00 Weight - Most Recent: 99.79 kg Med Orders - Current: Current Medications Acetaminophen (Acetaminophen 325 Mg Tab) 650 mg PO Q4H PRN PRN Reason: Pain/Fever Last Admin: 10/01/20 16:08 Dose: 650 mg Documented by: Amoxicillin (Amoxicillin 500 Mg Cap) 500 mg PO Q8H [facility] Last Admin: 10/02/20 10:39 Dose: 500 mg Documented by: Amoxicillin/Clavulanate Potassium (Amoxicillin/Clavulanate K 875-125 Mg Tab) 1 tab PO Q12HR [facility] Last Admin: 10/02/20 09:08 Dose: 1 tab Documented by: Diphenhydramine HCl (Diphenhydramine 50 Mg/Ml Sdv) 25 mg IVPUSH Q6H PRN PRN Reason: Itching or Nausea Docusate Sodium (Docusate Sodium 100 Mg Cap) 100 mg PO Q12H PRN PRN Reason: Constipation Last Admin: 10/02/20 10:54 Dose: 100 mg Documented by: Famotidine (Famotidine 20 Mg/2 Ml Sdv) 20 mg IVPUSH SEECOMMENT PRN PRN Reason: Itching Ferrous Sulfate (Ferrous Sulfate 325 Mg Tab) 325 mg PO WITHBREAKFAST [facility] Last Admin: 10/02/20 09:08 Dose: 325 mg Documented by: Tranexamic Acid 1,000 mg/ (Sodium Chloride) 110 mls @ 660 mls/hr IV ONETIME PRN PRN Reason: Bleeding Oxytocin/Sodium Chloride (Pitocin In Ns 30 Unit/500 Ml) 30 unit in 500 mls @ 2 mls/hr IV TITRATE [facility]; Protocol Last Titration: 09/30/20 03:36 Dose: 0 munits/min, 0 mls/hr Documented by: Oxytocin/Sodium Chloride (Pitocin In Ns 30 Unit/500 Ml) 30 unit in 500 mls @ 2 mls/hr IV TITRATE [facility]; Protocol Last Titration: 09/30/20 09:15 Dose: 0 munits/min, 0 mls/hr Documented by: Lactated Ringer's (Ringers, Lactated) 1,000 mls @ 125 mls/hr IV ASDIRECTED [facility] Last Admin: 10/01/20 00:34 Dose: 125 mls/hr Documented by: Ibuprofen (Ibuprofen 800 Mg Tab) 800 mg PO Q8H PRN PRN Reason: Cramping Last Admin: 10/02/20 03:40 Dose: 800 mg Documented by: Labetalol HCl (Labetalol 100 Mg Tab) 100 mg PO BID [facility] Last Admin: 10/02/20 09:08 Dose: 100 mg Documented by: Misoprostol (Misoprostol 400 Mcg (4 X 100 Mcg Tab)) 800 mcg RECTAL ASDIRECTED PRN PRN Reason: Hemorrhage Ondansetron HCl (Ondansetron 4 Mg/2 Ml Sdv) 4 mg IVPUSH Q4H PRN PRN Reason: Nausea/Vomiting Oxycodone/Acetaminophen (Acetaminophen/Oxycodone 325-5 Mg Tab) 1 tab PO Q4H PRN PRN Reason: Pain (moderate 4-6) Last Admin: 10/01/20 19:39 Dose: 1 tab Documented by: Oxycodone/Acetaminophen (Acetaminophen/Oxycodone 325-5 Mg Tab) 2 tab PO Q4H PRN PRN Reason: Pain (moderate 4-6) Last Admin: 10/02/20 10:51 Dose: 2 tab Documented by: Prenat Multivit/Robertson/Iron/Folic Ac ( Multivitamin With Calcium/Folic Acid/Iron Tab) 1 each PO DAILY [facility] Last Admin: 10/02/20 09:08 Dose: 1 each Documented by: Simethicone (Simethicone 80 Mg Tab.Chew) 160 mg PO QID [facility] Last Admin: 10/02/20 09:07 Dose: 160 mg Documented by: Sumatriptan Succinate (Sumatriptan 6 Mg/0.5 Ml Sdv) 6 mg SUBCUT ONETIME ONE Stop: 10/02/20 11:35 Discontinued Medications Acetaminophen (Acetaminophen 325 Mg Tab) 650 mg PO Q4H PRN PRN Reason: Pain (Mild 1-3) and fever Carboprost Tromethamine (Carboprost Tromethamine 250 Mcg/1 Ml Amp) 250 mcg IM ASDIRECTED PRN PRN Reason: HEMORRHAGE Citric Acid/Sodium Citrate (Citric Acid/Sodium Citrate Solution 30 Ml Cup) 30 ml PO ONETIME ONE Stop: 09/30/20 05:00 Last Admin: 09/30/20 05:09 Dose: 30 ml Documented by: Dexamethasone (Dexamethasone 4 Mg/Ml Sdv) 8 mg IV .STK-MED ONE Stop: 10/01/20 13:06 Ephedrine Sulfate (Ephedrine 50 Mg/Ml Sdv) 5 mg IVPUSH Q5M PRN PRN Reason: See Label Comments Last Admin: 09/30/20 04:15 Dose: 20 mg Documented by: Epinephrine HCl (Epinephrine 1 Mg/Ml Sdv) Confirm Administered Dose 1 mg .ROUTE .STK-MED ONE Stop: 09/30/20 03:04 Last Admin: 09/30/20 08:31 Dose: Not Given Documented by: Epinephrine HCl (Epinephrine 1 Mg/Ml Sdv) 0.1 mg .XX .STK-MED ONE Stop: 10/01/20 13:06 Fentanyl (Fentanyl 100 Mcg/2 Ml Sdv) 100 mcg IVPUSH Q1H PRN PRN Reason: Pain (moderate 4-6) Last Admin: 09/30/20 02:03 Dose: 100 mcg Documented by: Fentanyl (Fentanyl 100 Mcg/2 Ml Sdv) Confirm Administered Dose 100 mcg .ROUTE .STK-MED ONE Stop: 09/30/20 03:04 Last Admin: 09/30/20 08:31 Dose: Not Given Documented by: Fentanyl (Fentanyl 100 Mcg/2 Ml Sdv) 30 mcg ITHECAL .STK-MED ONE Stop: 10/01/20 13:06 Fluconazole (Fluconazole 100 Mg Tab) 150 mg PO ONETIME ONE Stop: 09/29/20 18:42 Last Admin: 09/29/20 19:53 Dose: 150 mg Documented by: Gentamicin Sulfate (Pharmacy To Dose - Gentamicin) 1 dose .XX ASDIRECTED [facility] Stop: 09/30/20 05:02 Last Admin: 09/30/20 08:31 Dose: Not Given Documented by: Lactated Ringer's (Ringers, Lactated) 1,000 mls @ 999 mls/hr IV BOLUS ONE Stop: 09/29/20 19:50 Last Admin: 09/30/20 08:30 Dose: Not Given Documented by: Lactated Ringer's (Ringers, Lactated) 1,000 mls @ 125 mls/hr IV ASDIRECTED [facility] Last Admin: 09/30/20 05:11 Dose: 125 mls/hr Documented by: Lactated Ringer's (Ringers, Lactated) 500 mls @ 999 mls/hr IV .BOLUS [facility] Vancomycin HCl 1 gm/ Sodium (Chloride) 250 mls @ 166.7 mls/hr IV Q12H [facility] Last Admin: 09/30/20 08:30 Dose: Not Given Documented by: Oxytocin/Sodium Chloride (Pitocin In Ns 30 Unit/500 Ml) Confirm Administered Dose 60 unit in 1,000 mls @ as directed .ROUTE .STK-MED ONE Stop: 09/30/20 04:57 Gentamicin Sulfate 370 mg/ (Sodium Chloride) 109.25 mls @ 109.25 mls/hr IV NOW ONE Stop: 09/30/20 06:14 Last Admin: 09/30/20 05:16 Dose: 109.25 mls/hr Documented by: Oxytocin/Sodium Chloride (Pitocin In Ns 30 Unit/500 Ml) 30 unit in 500 mls @ as directed IV .STK-MED ONE Stop: 10/01/20 10:02 Lactated Ringer's (Ringers, Lactated) 1,000 mls @ as directed IV .STK-MED ONE Stop: 10/01/20 13:06 Ketorolac Tromethamine (Ketorolac 30 Mg/Ml Sdv) 15 mg IVPUSH Q6H [facility] Stop: 10/01/20 00:31 Last Admin: 10/01/20 00:23 Dose: 15 mg Documented by: Ketorolac Tromethamine (Ketorolac 30 Mg/Ml Sdv) 30 mg IVPUSH .STK-MED ONE Stop: 10/01/20 13:06 Labetalol HCl (Labetalol 20 Mg/4 Ml Syringe) 10 mg IVPUSH ONETIME ONE Stop: 09/29/20 21:16 Last Admin: 09/29/20 21:21 Dose: 10 mg Documented by: Labetalol HCl (Labetalol 20 Mg/4 Ml Syringe) 10 mg IVPUSH ONETIME ONE Stop: 09/29/20 23:48 Last Admin: 09/30/20 00:28 Dose: 10 mg Documented by: Labetalol HCl (Labetalol 20 Mg/4 Ml Syringe) 10 mg IVPUSH ONETIME ONE Stop: 09/30/20 01:11 Last Admin: 09/30/20 01:18 Dose: 10 mg Documented by: Lidocaine HCl (Lidocaine 1% 30 Ml Sdv) 30 ml INJECT ASDIRECTED PRN PRN Reason: Perineal Repair Methylergonovine Maleate (Methylergonovine 0.2 Mg/1 Ml Amp) 0.2 mg IM ASDIRECTED PRN PRN Reason: Hemorrhage Morphine Sulfate (Morphine Pf 10 Mg/10 Ml Sdv) 0.2 mg .XX .STK-MED ONE Stop: 10/01/20 13:06 Naloxone HCl (Naloxone 2 Mg/2 Ml Syringe) 0.1 mg IVPUSH SEECOMMENT PRN PRN Reason: Respiratory Depression Ondansetron HCl (Ondansetron 4 Mg/2 Ml Sdv) 4 mg IVPUSH Q4H PRN PRN Reason: Nausea/Vomiting Last Admin: 09/30/20 00:04 Dose: 4 mg Documented by: Ondansetron HCl (Ondansetron 4 Mg/2 Ml Sdv) 4 mg IVPUSH Q4H PRN PRN Reason: Nausea/Vomiting Ondansetron HCl (Ondansetron 4 Mg/2 Ml Sdv) 4 mg IV .STK-MED ONE Stop: 10/01/20 13:06 Promethazine HCl (Promethazine 25 Mg/Ml Sdv) 12.5 mg IM Q6H PRN PRN Reason: Nausea/Vomiting Sodium Bicarbonate (Sodium Bicarbonate 4.2% 2.5 Meq/5 Ml Sdv) Confirm Administered Dose 2.5 meq .ROUTE .STK-MED ONE Stop: 09/30/20 03:05 Last Admin: 09/30/20 08:31 Dose: Not Given Documented by: Sodium Bicarbonate (Sodium Bicarbonate 4.2% 2.5 Meq/5 Ml Sdv) 0.5 meq .XX .STK- MED ONE Stop: 10/01/20 13:06 Sodium Bicarbonate (Sodium Bicarbonate 4.2% 2.5 Meq/5 Ml Sdv) 0.5 meq .XX .STK- MED ONE Stop: 10/01/20 13:06 Sodium Chloride (Sodium Chloride 0.9% 10 Ml Syringe) 10 ml FLUSH ASDIRECTED PRN PRN Reason: Keep Vein Open Sufentanil Citrate (Sufentanil 50 Mcg/1 Ml Amp) Confirm Administered Dose 50 mcg .ROUTE .STK-MED ONE Stop: 09/30/20 03:04 Last Admin: 09/30/20 08:31 Dose: Not Given Documented by: Sufentanil Citrate (Sufentanil 50 Mcg/1 Ml Amp) 20 mcg ITHECAL .STK-MED ONE Stop: 10/01/20 13:06 - Interaction Infant Disposition, : at Bedside Infant Feeding: Breastfed Infant; Nursed Well Support Person: Significant Other - Recovery Exam Fundal Tone: Firm Fundal Level: At Umbilicus Fundal Placement: Midline Lochia Amount: Small Lochia Color: Rubra/Red Perineum Description: Intact, Minimal Bruising/Swelling Episiotomy/Laceration: None Bladder Status: Voiding Urinary Elimination: Indwelling Catheter - Exam General: Alert, Oriented Lungs: Clear to Auscultation, Normal Respiratory Effort Cardiovascular: Regular Rate, Regular Rhythm, No Murmurs GI/Abdominal Exam: Soft, Non-Tender Skin: Warm, Dry, Intact Wound/Incisions: Healing Well. No: Erythema Neurological: No New Focal Deficit - Problem List & Annotations (1) care in third trimester SNOMED Code(s): 865235357, 19449273, 82247849, 468542221, 175004134 Code(s): Z34.93 - ENCNTR FOR SUPRVSN OF NORMAL PREG, UNSP, THIRD TRIMESTER Status: Acute Current Visit: Yes (2) Status post section SNOMED Code(s): 588826446, 480228731 Code(s): Z98.891 - HISTORY OF UTERINE SCAR FROM PREVIOUS SURGERY Status: Acute Current Visit: Yes (3) GBS (group B Streptococcus carrier), +RV culture, currently SNOMED Code(s): 8926568093528, 493461720, 0469346770600 Code(s): O99.820 - STREPTOCOCCUS B CARRIER STATE COMPLICATING Status: Acute Current Visit: Yes (4) Drug use affecting in third trimester SNOMED Code(s): 55831196, 49812461, 079398662 Code(s): O99.323 - DRUG USE COMPLICATING , THIRD TRIMESTER Status: Acute Current Visit: Yes (5) Gestational hypertension SNOMED Code(s): 93094541 Code(s): O13.9 - GESTATIONAL HTN W/O SIGNIFICANT PROTEINURIA, UNSP TRIMESTER Status: Acute Current Visit: Yes - Problem List Review Problem List Initiated/Reviewed/Updated: Yes - My Orders Last 24 Hours: My Active Orders 10/02/20 11:34 SUMAtriptan [Imitrex] 6 mg SUBCUT ONETIME ONE - Assessment Assessment:: 25-year-old, now , s/p pLTCS at 40w1d - Plan Plan:: 1. Continue routine cares 2. Given patient's good blood pressures and the nature of her headache, this does seem migraneous in nature. Will treat with sumitriptan x 1 dose (safe in ) 3. well 4. Anticipate discharge 10/03/2020 Michelle Quinn MD
[2020-10-03] MEDS: Amoxicillin 500 MG Cap PO SCH (04:11)
[2020-10-03] MEDS: hydrOXYzine HCl 25 MG Tab PO ONE ×2 (04:51→08:15)
[2020-10-03] MEDS: Ibuprofen 800 MG Tab PO PRN (07:14)
[2020-10-03] MEDS: Acetaminophen/oxyCODONE 325-5 MG Tab PO PRN (07:15)
[2020-10-03] MEDS ORDERED: hydrOXYzine HCl 25 MG Tab PO ONE (07:32)
[2020-10-03] MEDS: Labetalol 100 MG Tab PO SCH (08:14)
[2020-10-03] MEDS: Prenatal Multivitamin with Calcium/Folic Acid/Iron Tab PO SCH (08:14)
[2020-10-03] MEDS: Simethicone 80 MG Tab.Chew PO SCH (08:14)
[2020-10-03] MEDS: Ferrous Sulfate 325 MG Tab PO SCH (08:14)
[2020-10-03] MEDS: Docusate Sodium 100 MG Cap PO PRN (08:19)
[2020-10-03] MEDS: Amoxicillin/Clavulanate K 875-125 MG Tab PO SCH (08:19)
--- NOTE | 2020-10-03 09:51 | PCM.DCSUM1 ---
Discharge Summary - Hospital Course Diagnosis: Stroke: No - Discharge Data Discharge Disposition: Home, Self-Care 01 Condition: Good - Referral to Home Health Primary Care Physician: Rosalia Drew MD - Discharge Diagnosis/Problem(s) (1) care in third trimester SNOMED Code(s): 534313966, 42403698, 15629498, 415073253, 726777687 ICD Code: Z34.93 - ENCNTR FOR SUPRVSN OF NORMAL PREG, UNSP, THIRD TRIMESTER Status: Acute Current Visit: Yes (2) Status post section SNOMED Code(s): 532394999, 510061624 ICD Code: Z98.891 - HISTORY OF UTERINE SCAR FROM PREVIOUS SURGERY Status: Acute Current Visit: Yes (3) GBS (group B Streptococcus carrier), +RV culture, currently SNOMED Code(s): 7338462778186, 384504034, 6730048805441 ICD Code: O99.820 - STREPTOCOCCUS B CARRIER STATE COMPLICATING Status: Acute Current Visit: Yes (4) Drug use affecting in third trimester SNOMED Code(s): 18107070, 04131813, 695235042 ICD Code: O99.323 - DRUG USE COMPLICATING , THIRD TRIMESTER Status: Acute Current Visit: Yes (5) Gestational hypertension SNOMED Code(s): 25358877 ICD Code: O13.9 - GESTATIONAL HTN W/O SIGNIFICANT PROTEINURIA, UNSP TRIMESTER Status: Acute Current Visit: Yes - Patient Summary/Data Consults: Consultations 09/30/20 06:51 Consult to Hematology Supervisor [CONS] Routine - Patient Instructions Diet: Usual Diet as Tolerated Activity: As Tolerated, No Lifting Over 20 Pounds Driving: Do Not Drive (while taking pain medication) Showering/Bathing: May Shower Wound/Incision Care: Keep Operative Site/Wound Site Clean and Dry Notify Provider of: Fever, Increased Pain, Swelling and Redness, Drainage, Nausea and/or Vomiting - Discharge Plan *PRESCRIPTION DRUG MONITORING PROGRAM REVIEWED*: No *COPY OF PRESCRIPTION DRUG MONITORING REPORT IN PATIENT FAWAD: No Home Medications: Home Meds Acetaminophen [Tylenol] 650 mg PO Q4H PRN tablet 10/03/20 [Rx] Acetaminophen/oxyCODONE [Percocet 325-5 MG] 1 tab PO Q4H PRN tablet 10/03/20 [Rx] Docusate Sodium [Colace] 100 mg PO Q12H PRN cap 10/03/20 [Rx] Ferrous Sulfate 325 mg PO WITHBREAKFAST tablet 10/03/20 [Rx] Ibuprofen [Motrin] 800 mg PO Q8H PRN tablet 10/03/20 [Rx] Labetalol [Normodyne] 100 mg PO BID #0 tablet 10/03/20 [Rx] Vit with Ca/FA/Iron [ Plus Iron] 1 each PO DAILY tablet 10/03/20 [Rx] Referrals: Rosalia Sky MD [Primary Care Provider] - - Patient Data Vitals - Most Recent: Last Vital Signs Temp 37.2 C 10/03/20 08:00 Pulse 107 H 10/03/20 08:14 Resp 16 10/03/20 08:00 BP 149/97 H 10/03/20 08:14 Pulse Ox 98 10/02/20 21:50 Weight - Most Recent: 99.79 kg Lab Results - Last 24 hrs: Laboratory Results - last 24 hr 10/03/20 10/03/20 Range/Units 08:43 08:43 WBC 11.3 H (5.0-10.0) 10^3/uL RBC 3.93 L (4.2-5.4) 10^6/uL Hgb 12.8 D (12.0-16.0) g/dL Hct 37.8 (37.0-47.0) % MCV 96.2 (80-100) fL MCH 32.6 (27.0-34.0) pg MCHC 33.9 (33.0-35.0) g/dL Plt Count 270 (150-450) 10^3/uL BUN 9 (7-18) mg/dL Creatinine 0.83 (0.55-1.02) mg/dL Est Cr Clr Drug Dosing 94.86 mL/min Estimated GFR (MDRD) > 60 Uric Acid 4.8 (2.6-6.0) mg/dL AST 24 (15-37) U/L ALT 29 (14-59) U/L Lactate Dehydrogenase 148 (81-234) U/L Med Orders - Current: Current Medications Acetaminophen (Acetaminophen 325 Mg Tab) 650 mg PO Q4H PRN PRN Reason: Pain/Fever Last Admin: 10/01/20 16:08 Dose: 650 mg Documented by: Amoxicillin (Amoxicillin 500 Mg Cap) 500 mg PO Q8H [facility] Last Admin: 10/03/20 04:11 Dose: 500 mg Documented by: Amoxicillin/Clavulanate Potassium (Amoxicillin/Clavulanate K 875-125 Mg Tab) 1 tab PO Q12HR [facility] Last Admin: 10/03/20 08:19 Dose: 1 tab Documented by: Diphenhydramine HCl (Diphenhydramine 50 Mg/Ml Sdv) 25 mg IVPUSH Q6H PRN PRN Reason: Itching or Nausea Docusate Sodium (Docusate Sodium 100 Mg Cap) 100 mg PO Q12H PRN PRN Reason: Constipation Last Admin: 10/03/20 08:19 Dose: 100 mg Documented by: Famotidine (Famotidine 20 Mg/2 Ml Sdv) 20 mg IVPUSH SEECOMMENT PRN PRN Reason: Itching Ferrous Sulfate (Ferrous Sulfate 325 Mg Tab) 325 mg PO WITHBREAKFAST [facility] Last Admin: 10/03/20 08:14 Dose: 325 mg Documented by: Tranexamic Acid 1,000 mg/ (Sodium Chloride) 110 mls @ 660 mls/hr IV ONETIME PRN PRN Reason: Bleeding Oxytocin/Sodium Chloride (Pitocin In Ns 30 Unit/500 Ml) 30 unit in 500 mls @ 2 mls/hr IV TITRATE [facility]; Protocol Last Titration: 09/30/20 03:36 Dose: 0 munits/min, 0 mls/hr Documented by: Oxytocin/Sodium Chloride (Pitocin In Ns 30 Unit/500 Ml) 30 unit in 500 mls @ 2 mls/hr IV TITRATE [facility]UR[facility]; Protocol Last Titration: 09/30/20 09:15 Dose: 0 munits/min, 0 mls/hr Documented by: Lactated Ringer's (Ringers, Lactated) 1,000 mls @ 125 mls/hr IV ASDIRECTED [facility] Last Admin: 10/01/20 00:34 Dose: 125 mls/hr Documented by: Ibuprofen (Ibuprofen 800 Mg Tab) 800 mg PO Q8H PRN PRN Reason: Cramping Last Admin: 10/03/20 07:14 Dose: 800 mg Documented by: Labetalol HCl (Labetalol 100 Mg Tab) 100 mg PO BID [facility] Last Admin: 10/03/20 08:14 Dose: 100 mg Documented by: Misoprostol (Misoprostol 400 Mcg (4 X 100 Mcg Tab)) 800 mcg RECTAL ASDIRECTED PRN PRN Reason: Hemorrhage Ondansetron HCl (Ondansetron 4 Mg/2 Ml Sdv) 4 mg IVPUSH Q4H PRN PRN Reason: Nausea/Vomiting Oxycodone/Acetaminophen (Acetaminophen/Oxycodone 325-5 Mg Tab) 1 tab PO Q4H PRN PRN Reason: Pain (moderate 4-6) Last Admin: 10/03/20 07:15 Dose: 1 tab Documented by: Oxycodone/Acetaminophen (Acetaminophen/Oxycodone 325-5 Mg Tab) 2 tab PO Q4H PRN PRN Reason: Pain (moderate 4-6) Last Admin: 10/02/20 17:26 Dose: 2 tab Documented by: Prenat Multivit/Graves/Iron/Folic Ac ( Multivitamin With Calcium/Folic Acid/Iron Tab) 1 each PO DAILY [facility] Last Admin: 10/03/20 08:14 Dose: 1 each Documented by: Simethicone (Simethicone 80 Mg Tab.Chew) 160 mg PO QID [facility] Last Admin: 10/03/20 08:14 Dose: 160 mg Documented by: Discontinued Medications Acetaminophen (Acetaminophen 325 Mg Tab) 650 mg PO Q4H PRN PRN Reason: Pain (Mild 1-3) and fever Carboprost Tromethamine (Carboprost Tromethamine 250 Mcg/1 Ml Amp) 250 mcg IM ASDIRECTED PRN PRN Reason: HEMORRHAGE Citric Acid/Sodium Citrate (Citric Acid/Sodium Citrate Solution 30 Ml Cup) 30 ml PO ONETIME ONE Stop: 09/30/20 05:00 Last Admin: 09/30/20 05:09 Dose: 30 ml Documented by: Dexamethasone (Dexamethasone 4 Mg/Ml Sdv) 8 mg IV .STK-MED ONE Stop: 10/01/20 13:06 Ephedrine Sulfate (Ephedrine 50 Mg/Ml Sdv) 5 mg IVPUSH Q5M PRN PRN Reason: See Label Comments Last Admin: 09/30/20 04:15 Dose: 20 mg Documented by: Epinephrine HCl (Epinephrine 1 Mg/Ml Sdv) Confirm Administered Dose 1 mg .ROUTE .STK-MED ONE Stop: 09/30/20 03:04 Last Admin: 09/30/20 08:31 Dose: Not Given Documented by: Epinephrine HCl (Epinephrine 1 Mg/Ml Sdv) 0.1 mg .XX .STK-MED ONE Stop: 10/01/20 13:06 Fentanyl (Fentanyl 100 Mcg/2 Ml Sdv) 100 mcg IVPUSH Q1H PRN PRN Reason: Pain (moderate 4-6) Last Admin: 09/30/20 02:03 Dose: 100 mcg Documented by: Fentanyl (Fentanyl 100 Mcg/2 Ml Sdv) Confirm Administered Dose 100 mcg .ROUTE .STK-MED ONE Stop: 09/30/20 03:04 Last Admin: 09/30/20 08:31 Dose: Not Given Documented by: Fentanyl (Fentanyl 100 Mcg/2 Ml Sdv) 30 mcg ITHECAL .STK-MED ONE Stop: 10/01/20 13:06 Fluconazole (Fluconazole 100 Mg Tab) 150 mg PO ONETIME ONE Stop: 09/29/20 18:42 Last Admin: 09/29/20 19:53 Dose: 150 mg Documented by: Gentamicin Sulfate (Pharmacy To Dose - Gentamicin) 1 dose .XX ASDIRECTED [facility] Stop: 09/30/20 05:02 Last Admin: 09/30/20 08:31 Dose: Not Given Documented by: Hydroxyzine HCl (Hydroxyzine Hcl 25 Mg Tab) 50 mg PO ONETIME ONE Stop: 10/02/20 19:09 Last Admin: 10/03/20 08:15 Dose: 50 mg Documented by: Hydroxyzine HCl (Hydroxyzine Hcl 25 Mg Tab) 50 mg PO ONETIME ONE Stop: 10/03/20 07:33 Last Admin: 10/03/20 09:35 Dose: Not Given Documented by: Lactated Ringer's (Ringers, Lactated) 1,000 mls @ 999 mls/hr IV BOLUS ONE Stop: 09/29/20 19:50 Last Admin: 09/30/20 08:30 Dose: Not Given Documented by: Lactated Ringer's (Ringers, Lactated) 1,000 mls @ 125 mls/hr IV ASDIRECTED [facility] Last Admin: 09/30/20 05:11 Dose: 125 mls/hr Documented by: Lactated Ringer's (Ringers, Lactated) 500 mls @ 999 mls/hr IV .BOLUS [facility] Vancomycin HCl 1 gm/ Sodium (Chloride) 250 mls @ 166.7 mls/hr IV Q12H [facility] Last Admin: 09/30/20 08:30 Dose: Not Given Documented by: Oxytocin/Sodium Chloride (Pitocin In Ns 30 Unit/500 Ml) Confirm Administered Dose 60 unit in 1,000 mls @ as directed .ROUTE .STK-MED ONE Stop: 09/30/20 04:57 Gentamicin Sulfate 370 mg/ (Sodium Chloride) 109.25 mls @ 109.25 mls/hr IV NOW ONE Stop: 09/30/20 06:14 Last Admin: 09/30/20 05:16 Dose: 109.25 mls/hr Documented by: Oxytocin/Sodium Chloride (Pitocin In Ns 30 Unit/500 Ml) 30 unit in 500 mls @ as directed IV .STK-MED ONE Stop: 10/01/20 10:02 Lactated Ringer's (Ringers, Lactated) 1,000 mls @ as directed IV .STK-MED ONE Stop: 10/01/20 13:06 Ketorolac Tromethamine (Ketorolac 30 Mg/Ml Sdv) 15 mg IVPUSH Q6H [facility] Stop: 10/01/20 00:31 Last Admin: 10/01/20 00:23 Dose: 15 mg Documented by: Ketorolac Tromethamine (Ketorolac 30 Mg/Ml Sdv) 30 mg IVPUSH .STK-MED ONE Stop: 10/01/20 13:06 Labetalol HCl (Labetalol 20 Mg/4 Ml Syringe) 10 mg IVPUSH ONETIME ONE Stop: 09/29/20 21:16 Last Admin: 09/29/20 21:21 Dose: 10 mg Documented by: Labetalol HCl (Labetalol 20 Mg/4 Ml Syringe) 10 mg IVPUSH ONETIME ONE Stop: 09/29/20 23:48 Last Admin: 09/30/20 00:28 Dose: 10 mg Documented by: Labetalol HCl (Labetalol 20 Mg/4 Ml Syringe) 10 mg IVPUSH ONETIME ONE Stop: 09/30/20 01:11 Last Admin: 09/30/20 01:18 Dose: 10 mg Documented by: Lidocaine HCl (Lidocaine 1% 30 Ml Sdv) 30 ml INJECT ASDIRECTED PRN PRN Reason: Perineal Repair Methylergonovine Maleate (Methylergonovine 0.2 Mg/1 Ml Amp) 0.2 mg IM ASDIRECTED PRN PRN Reason: Hemorrhage Morphine Sulfate (Morphine Pf 10 Mg/10 Ml Sdv) 0.2 mg .XX .STK-MED ONE Stop: 10/01/20 13:06 Naloxone HCl (Naloxone 2 Mg/2 Ml Syringe) 0.1 mg IVPUSH SEECOMMENT PRN PRN Reason: Respiratory Depression Ondansetron HCl (Ondansetron 4 Mg/2 Ml Sdv) 4 mg IVPUSH Q4H PRN PRN Reason: Nausea/Vomiting Last Admin: 09/30/20 00:04 Dose: 4 mg Documented by: Ondansetron HCl (Ondansetron 4 Mg/2 Ml Sdv) 4 mg IVPUSH Q4H PRN PRN Reason: Nausea/Vomiting Ondansetron HCl (Ondansetron 4 Mg/2 Ml Sdv) 4 mg IV .STK-MED ONE Stop: 10/01/20 13:06 Promethazine HCl (Promethazine 25 Mg/Ml Sdv) 12.5 mg IM Q6H PRN PRN Reason: Nausea/Vomiting Sodium Bicarbonate (Sodium Bicarbonate 4.2% 2.5 Meq/5 Ml Sdv) Confirm Administered Dose 2.5 meq .ROUTE .STK-MED ONE Stop: 09/30/20 03:05 Last Admin: 09/30/20 08:31 Dose: Not Given Documented by: Sodium Bicarbonate (Sodium Bicarbonate 4.2% 2.5 Meq/5 Ml Sdv) 0.5 meq .XX .STK- MED ONE Stop: 10/01/20 13:06 Sodium Bicarbonate (Sodium Bicarbonate 4.2% 2.5 Meq/5 Ml Sdv) 0.5 meq .XX .STK- MED ONE Stop: 10/01/20 13:06 Sodium Chloride (Sodium Chloride 0.9% 10 Ml Syringe) 10 ml FLUSH ASDIRECTED PRN PRN Reason: Keep Vein Open Sufentanil Citrate (Sufentanil 50 Mcg/1 Ml Amp) Confirm Administered Dose 50 mcg .ROUTE .STK-MED ONE Stop: 09/30/20 03:04 Last Admin: 09/30/20 08:31 Dose: Not Given Documented by: Sufentanil Citrate (Sufentanil 50 Mcg/1 Ml Amp) 20 mcg ITHECAL .STK-MED ONE Stop: 10/01/20 13:06 Sumatriptan Succinate (Sumatriptan 6 Mg/0.5 Ml Sdv) 6 mg SUBCUT ONETIME ONE Stop: 10/02/20 11:35 Last Admin: 10/02/20 13:29 Dose: 6 mg Documented by:
== END 2020-10-03 11:40 | disposition home or self-care (01) | DRG 787 ==
LOC: DL.OBCHECK 15:31 → DL.OB 18:54 → OBSVTOIN 09-30 05:49 → DL.MS 09-30 06:07
PROVIDERS: ADMIT Family Medicine; ATTEND Family Medicine
PROC: 10D00Z1 Extraction of Products of Conception, Low, Open Approach (ICD-10-PCS; principal; 2020-09-30)
PROC: 3E0R3BZ Introduction of Anesthetic Agent into Spinal Canal, Percutaneous Approach (ICD-10-PCS; 2020-09-30)
DX: O42.02 Full-term premature rupture of membranes, onset of labor within 24 hours of rupture (principal); O99.324 Drug use complicating childbirth; O23.43 Unspecified infection of urinary tract in pregnancy, third trimester; O99.354 Diseases of the nervous system complicating childbirth; O98.82 Other maternal infectious and parasitic diseases complicating childbirth; O13.4 Gestational [pregnancy-induced] hypertension without significant proteinuria, complicating childbirth; F90.9 Attention-deficit hyperactivity disorder, unspecified type; O99.344 Other mental disorders complicating childbirth; G43.909 Migraine, unspecified, not intractable, without status migrainosus; Z20.822 Contact with and (suspected) exposure to COVID-19; O99.824 Streptococcus B carrier state complicating childbirth; O76 Abnormality in fetal heart rate and rhythm complicating labor and delivery; F12.90 Cannabis use, unspecified, uncomplicated; O36.5130 Maternal care for known or suspected placental insufficiency, third trimester, not applicable or unspecified; Z37.0 Single live birth; Z3A.40 40 weeks gestation of pregnancy; Z87.891 Personal history of nicotine dependence; Z28.82 Immunization not carried out because of caregiver refusal
CPT/HCPCS: 01961; 36415; 51702; 80048; 80305-QW; 81001; 82565; 82570; 83615; 84112; 84156; 84450; 84460; 84520; 84550; 85027; 86850; 86900; 86901; 94010; A9270-GY; J0171; J1100; J1580; J1885; J2270; J2405; J2590; J3010; J3030; J3370; J3490; J7050; J7120; U0002

== ENCOUNTER 2021-07-26 08:55 | Inpatient (IN) | payer MEDICAID ==
[2021-07-26] MEDS ORDERED: Tranexamic Acid 1,000 MG in Sodium Chloride 0.9% 100 ML IV PRN ×2 (09:00→13:33)
[2021-07-26] MEDS ORDERED: Oxytocin 10 Units/1 ML SDV IM PRN (09:00)
[2021-07-26] MEDS ORDERED: Citric Acid/Sodium Citrate Solution 30 ML Cup PO ONE (09:00)
[2021-07-26] MEDS ORDERED: Carboprost Tromethamine 250 MCG/1 ML Amp IM PRN ×2 (09:00→13:33)
[2021-07-26] MEDS ORDERED: Oxytocin/Normal Saline 30 UNIT/500 ML BAG IV SCH (09:00)
[2021-07-26] MEDS ORDERED: Methylergonovine 0.2 MG Tab PO PRN (09:00)
[2021-07-26] MEDS ORDERED: Sodium Chloride 0.9% 10 ML Syringe FLUSH PRN (09:00)
[2021-07-26] MEDS ORDERED: Sodium Chloride 0.9% 10 ML Syringe FLUSH SCH (09:00)
[2021-07-26] MEDS ORDERED: Lactated Ringers 1,000 ML IV SCH (09:00)
[2021-07-26] MEDS: Lactated Ringers 1,000 ML IV SCH ×5 (10:15→22:25)
[2021-07-26] MEDS ORDERED: Oxytocin/Normal Saline 60 UNIT/1,000 ML BAG ONE (10:47)
[2021-07-26 11:26] LABS: AMPHETAMINES,URINE NEGATIVE (NEGATIVE); BARBITURATES,URINE NEGATIVE (NEGATIVE); BENZODIAZEPINE,URINE NEGATIVE (NEGATIVE); MDMA (ECSTASY), URINE NEGATIVE (NEGATIVE); METHADONE,URINE NEGATIVE (NEGATIVE); METHAMPHETAMINES,URINE NEGATIVE (NEGATIVE); OPIATES,URINE NEGATIVE (NEGATIVE); OXYCODONE,URINE NEGATIVE (NEGATIVE); PHENCYCLIDINE,URINE NEGATIVE (NEGATIVE); TCA,URINE NEGATIVE (NEGATIVE)
[2021-07-26] MEDS ORDERED: Morphine PF 10 MG/10 ML SDV ONE (12:00)
[2021-07-26] MEDS ORDERED: Ondansetron 4 MG/2 ML SDV IV ONE (12:00)
[2021-07-26] MEDS ORDERED: Dexamethasone 4 MG/ML SDV IV ONE (12:00)
[2021-07-26] MEDS ORDERED: fentaNYL 100 MCG/2 ML SDV IV ONE (12:00)
[2021-07-26] MEDS ORDERED: Lactated Ringers 1,000 ML IV ONE (12:00)
[2021-07-26] MEDS ORDERED: ePHEDrine 50 MG/ML SDV IVPUSH PRN (13:33)
[2021-07-26] MEDS ORDERED: Methylergonovine 0.2 MG/1 ML Amp IM PRN (13:33)
[2021-07-26] MEDS ORDERED: diphenhydrAMINE 50 MG/ML SDV IVPUSH PRN (13:33)
[2021-07-26] MEDS ORDERED: Acetaminophen 325 MG Tab PO PRN (13:33)
[2021-07-26] MEDS ORDERED: Misoprostol 400 MCG (4 X 100 MCG TAB) RECTAL PRN (13:33)
[2021-07-26] MEDS ORDERED: Ondansetron 4 MG/2 ML SDV IVPUSH PRN (13:33)
[2021-07-26] MEDS ORDERED: Naloxone 2 MG/2 ML Syringe IVPUSH PRN (13:33)
[2021-07-26] MEDS ORDERED: Oxytocin/Normal Saline 30 UNIT/500 ML BAG IV ONE (15:00)
[2021-07-26] MEDS: Simethicone 80 MG Tab.Chew PO SCH ×2 (18:28→21:27)
[2021-07-26] MEDS: Docusate Sodium 100 MG Cap PO PRN (21:27)
[2021-07-26] MEDS: Acetaminophen/oxyCODONE 325-5 MG Tab PO PRN (21:27)
[2021-07-27] MEDS: Simethicone 80 MG Tab.Chew PO SCH ×4 (08:55→21:19)
[2021-07-27] MEDS: Prenatal Multivitamin with Calcium/Folic Acid/Iron Tab PO SCH (08:56)
[2021-07-27] MEDS: Docusate Sodium 100 MG Cap PO PRN ×2 (08:56→21:19)
[2021-07-27] MEDS: Ferrous Sulfate 325 MG Tab PO SCH (08:56)
[2021-07-27] MEDS: Acetaminophen/oxyCODONE 325-5 MG Tab PO PRN ×3 (08:56→21:19)
[2021-07-27] MEDS: Ketorolac 30 MG/ML SDV IVPUSH SCH (11:56)
[2021-07-27] MEDS: Ibuprofen 800 MG Tab PO PRN (16:47)
[2021-07-28] MEDS: Acetaminophen/oxyCODONE 325-5 MG Tab PO PRN ×2 (01:07→07:43)
[2021-07-28] MEDS: Ibuprofen 800 MG Tab PO PRN ×2 (01:07→07:42)
[2021-07-28] MEDS: Simethicone 80 MG Tab.Chew PO SCH ×2 (07:40→10:25)
[2021-07-28] MEDS: Prenatal Multivitamin with Calcium/Folic Acid/Iron Tab PO SCH ×2 (07:41→10:25)
[2021-07-28] MEDS: Ferrous Sulfate 325 MG Tab PO SCH (07:43)
[2021-07-28] MEDS: Docusate Sodium 100 MG Cap PO PRN (07:50)
[2021-07-28] MEDS ORDERED: Acetaminophen/Butalbital/Caffeine 325-50-40 MG Tab PO ONE (08:20)
== END 2021-07-28 14:45 | disposition home or self-care (01) | DRG 786 ==
LOC: DL.OBCHECK 08:55 → DL.MS 09:27 → DL.OB 11:01 → EDSTATUS 12:00 → DL.MS 12:25 → OBSVTOIN 12:25
PROVIDERS: ADMIT Family Medicine; ATTEND Family Medicine
PROC: 10D00Z1 Extraction of Products of Conception, Low, Open Approach (ICD-10-PCS; principal; 2021-07-26)
PROC: 4A1HXCZ Monitoring of Products of Conception, Cardiac Rate, External Approach (ICD-10-PCS; 2021-07-26)
DX: O36.5930 Maternal care for other known or suspected poor fetal growth, third trimester, not applicable or unspecified (principal); U07.1 COVID-19; O98.52 Other viral diseases complicating childbirth; Z3A.37 37 weeks gestation of pregnancy; Z37.0 Single live birth; O99.02 Anemia complicating childbirth; D64.9 Anemia, unspecified; O99.214 Obesity complicating childbirth; O99.334 Smoking (tobacco) complicating childbirth; F17.210 Nicotine dependence, cigarettes, uncomplicated
CPT/HCPCS: 36415; 80305-QW; 81001; 85025; 85027; 86850; 86900; 86901; A9270-GY; J1100; J1580; J2270; J2405; J2590; J3010; J7120; U0002